=== PATIENT | male | born 1965 | race African-American/Black ===

== ENCOUNTER 2019-09-02 17:42 | Emergency (ER) | payer SELFPAY ==
[~2019-09-02] VITALS: Ht 195.6 cm; Wt 136.0 kg
[2019-09-02 19:04] VITALS: BP 169/101
== END 2019-09-02 19:07 | disposition home or self-care (01) ==
LOC: ER 17:42
DX: B34.9 Viral infection, unspecified (principal); E11.9 Type 2 diabetes mellitus without complications; I10 Essential (primary) hypertension
CPT/HCPCS: 99283

== ENCOUNTER 2019-09-16 13:14 | Emergency (ER) | payer SELFPAY | END 2019-09-16 13:59 | disposition left against medical advice (07) | LOC: ER 13:14 | DX: R68.89 Other general symptoms and signs (principal); Z53.21 Procedure and treatment not carried out due to patient leaving prior to being seen by health care provider ==